=== PATIENT | male | born 1980 | race Two or more races ===

== ENCOUNTER 2018-01-12 08:05 | Day surgery (SDC) | payer OTHER ==
[2018-01-12] VITALS (8 sets, daily range): BP systolic 99–136; BP diastolic 71–84
[~2018-01-12] VITALS: Ht 177.8 cm; Wt 91.8 kg
[~2018-01-12 08:05] MED LIST: IBUP-1984 PO; ceFAZolin 2gm in dextrose, iso 100 ML IV ONE; famotidine 20mg tablet PO ONE; ringers solution, lacted 1,000 ML IV SCH
[2018-01-12 08:54] LABS: BASOPHILS % (AUTO) 0.4 % (0-1); EOSINOPHILS # (AUTO) 0.2 X10'3 (0-0.9); EOSINOPHILS % (AUTO) 4.1 % (0-6); LYMPHOCYTES # (AUTO) 1.6 X10'3 (1.1-4.8); LYMPHOCYTES % (AUTO) 26.6 % (21-51); MEAN CORPUSCULAR HEMOGLOBIN 30.5 PG (27.0-31.0); MEAN CORPUSCULAR HGB CONC 34.5 % (33.0-36.5); MEAN CORPUSCULAR VOLUME 88.4 FL (78-98); MEAN PLATELET VOLUME 7.8 FL (7.4-10.4); MONOCYTES # (AUTO) 0.5 X10'3 (0-0.9); MONOCYTES % (AUTO) 7.7 % (2-12); NEUTROPHILS # (AUTO) 3.6 X10'3 (1.8-7.7); NEUTROPHILS % (AUTO) 61.2 % (42-75); PRE OP HEMATOCRIT 46.8 % (42.0-52.0); PRE OP HEMOGLOBIN 16.1 g/dL (14.0-17.9); PRE OP PLATELET COUNT 274 X10'3 (140-440); RED BLOOD COUNT 5.29 X10'6 (4.70-6.10); RED CELL DISTRIBUTION WIDTH 13.3 % (11.5-14.5)
[2018-01-12 09:08] LABS: ALBUMIN 4.2 G/DL (3.4-5.0); ALBUMIN/GLOBULIN RATIO 1.2 (1.1-1.5); ALKALINE PHOSPHATASE 76 IU/L (46-116); BLOOD UREA NITROGEN 15 MG/DL (7-18); BUN/CREATININE RATIO 15.2 (5.4-32.0); CALCIUM 9.3 MG/DL (8.5-10.1); CHLORIDE 108 MMOL/L (99-107); CREATININE 0.99 MG/DL (0.60-1.10); PRE OP ALT 33 U/L (30-65); PRE OP ANION GAP 7 (8-16); PRE OP AST 17 U/L (10-37); PRE OP BILIRUB, TOTAL 0.3 MG/DL (0.0-1.0); PRE OP GLUCOSE 92 MG/DL (70-104); PRE OP SODIUM 144 MMOL/L (135-145); TOTAL CARBON DIOXIDE 29.1 MMOL/L (24-32); TOTAL PROTEIN 7.7 G/DL (6.4-8.2); eGFR 84 ML/MIN
[2018-01-12] MEDS ORDERED: ringers solution, lacted 1,000 ML IV SCH (09:32)
[2018-01-12] MEDS ORDERED: proCHLORperazine 10 MG/2 ml inj IV PRN (09:35)
[2018-01-12] MEDS ORDERED: ondansetron/PF 4mg/2ml inj IV PRN (09:35)
[2018-01-12] MEDS ORDERED: morphine 4 MG/ML inj SYRINge IV PRN ×2 (09:35)
[2018-01-12] MEDS ORDERED: meperidine/PF 50mg/ml syringe IV PRN ×3 (09:35)
[2018-01-12] MEDS ORDERED: ceFAZolin 1000mg inj ONE (12:19)
[2018-01-12] MEDS ORDERED: BUPIVAcaine/PF 2.5 mg/ml (0.25%) 30ml vial ONE (12:20)
[2018-01-12] MEDS ORDERED: MIDAZolam 5mg/5ml vial ONE (12:49)
[2018-01-12] MEDS ORDERED: fentaNYL/PF 50MCG/1 ML 2ML syringe ONE (12:49)
[2018-01-12] MEDS ORDERED: LIDOcaine 1%/PF (10mg/ml) 5ml vial ONE (12:50)
[2018-01-12] MEDS ORDERED: ROPIVAcaine 0.5% (5mg/ml) 30ml vial ONE (12:50)
[2018-01-12] MEDS ORDERED: propofol inj 20 ML IV ONE (12:50)
== END 2018-01-12 15:30 ==
LOC: PAS 08:05 → EEVIPCON 15:15 → PAS 15:30
PROVIDERS: ATTEND Orthopaedic Surgery
DX: S46.111A Strain of muscle, fascia and tendon of long head of biceps, right arm, initial encounter (principal); M21.821 Other specified acquired deformities of right upper arm; G89.18 Other acute postprocedural pain; Z79.1 Long term (current) use of non-steroidal anti-inflammatories (NSAID); Z98.890 Other specified postprocedural states; X58.XXXA Exposure to other specified factors, initial encounter; Y93.B2 Activity, push-ups, pull-ups, sit-ups; Y92.89 Other specified places as the place of occurrence of the external cause; Y99.8 Other external cause status
CPT/HCPCS: 23430; 36415; 64415; 80053; 85025; A4565; A6449; A6454; J0690; J2001; J2250; J2704; J2795; J3010; J7120; A7000; J3490